=== PATIENT | female | born 1980 | race Caucasian/White ===

== ENCOUNTER 2019-10-23 20:48 | Emergency (ER) | payer BC ==
[~2019-10-23] VITALS: Ht 160 cm; Wt 65.8 kg
[2019-10-23] MEDS ORDERED: ONDA4TAB8 PO (21:13)
[2019-10-23] MEDS ORDERED: PIPERACILLIN SODIUM/TAZOBACTAM 3.375 G in IV DEXTROSE 5% 50 ML IV ONE (22:45)
[2019-10-23] MEDS ORDERED: KETOROLAC TROMETHAMINE 30 MG INJ IVP ONE (23:00)
[2019-10-23] MEDS ORDERED: IV NORMAL SALINE 1000 ML BAG IV ONE (23:00)
[2019-10-23] MEDS ORDERED: METOCLOPRAMIDE HCL 10 MG/2 ML VIAL IV ONE (23:00)
[2019-10-23] MEDS ORDERED: METOCLOPRAMIDE HCL 10 MG/2 ML VIAL ONE (23:04)
[2019-10-23] MEDS ORDERED: KETOROLAC TROMETHAMINE 30 MG INJ ONE (23:04)
--- NOTE | 2019-10-24 00:16 | NUR ---
Patient discharged to home in stable conditon. Written and verbal after care instructions given. Patient verbalizes understanding of instructions. All belongings with patient. PIV removed. Verbal ACI
[2019-10-24 00:17] VITALS: BP 107/71
== END 2019-10-24 00:17 | disposition home or self-care (01) ==
LOC: ER 20:51
DX: J11.1 Influenza due to unidentified influenza virus with other respiratory manifestations (principal); Z79.899 Other long term (current) drug therapy
CPT/HCPCS: 87400; 93005; 96374; 96375; 99284; J1885; J2765; A4663; J7030

== ENCOUNTER 2023-03-17 18:40 | Emergency (ER) | payer BC ==
[~2023-03-17] VITALS: Ht 160 cm; Wt 65.8 kg
[~2023-03-17 18:40] MED LIST: ONDA4TAB8 PO
[2023-03-17 18:45] VITALS: O2SAT 99
[2023-03-17] MEDS ORDERED: KETOROLAC TROMETHAMINE 30 MG INJ IM ONE (19:30)
[2023-03-17] MEDS ORDERED: MAG HYDROX/AL HYDROX/SIMETH 30 ML LIQUID UDC PO ONE (19:30)
[2023-03-17] MEDS ORDERED: KETOROLAC TROMETHAMINE 30 MG INJ ONE (19:33)
[2023-03-17] MEDS ORDERED: MAG HYDROX/AL HYDROX/SIMETH 30 ML LIQUID UDC ONE (19:35)
[2023-03-17 19:38] LABS: HEMATOCRIT 39.3 % (31.2-41.9); MEAN CORPUSCULAR HEMOGLOBIN 30.5 uug (24.7-32.8); MEAN CORPUSCULAR VOLUME 90.5 fL (75.5-95.3); PLATELET COUNT (AUTO) 197 K/uL (179-408)
--- NOTE | 2023-03-17 19:39 | NUR ---
Patient refused medication . notified.
[2023-03-17 19:41] LABS: *BILIRUBIN,URIN NEGATIVE (NEGATIVE); *BLOOD, URINE NEGATIVE (NEGATIVE); *CLARITY,URINE CLEAR (CLEAR); *COLOR,URINE YELLOW (YELLOW); *KETONES,URINE NEGATIVE (NEGATIVE); *UROBILINOGEN,URINE 0.2 E.U./dl (NORMAL); LEUKOCYTE ESTERASE ,URINE NEGATIVE (NEGATIVE); NITRITE, URINE NEGATIVE (NEGATIVE); UGLUCOSE NEGATIVE (NEGATIVE)
[2023-03-17 19:44] LABS: *URINE HCG, QUAL NEGATIVE (NEGATIVE)
--- NOTE | 2023-03-17 19:44 | NUR ---
Urine specimen sent to lab.
[2023-03-17 19:46] LABS: CREATININE 0.6 mg/dL (0.6-1.3); POTASSIUM 4.2 mmol/L (3.5-5.1)
[2023-03-17 19:52] LABS: BILIRUBIN,TOTAL 0.3 mg/dL (0.2-1.0); TOTAL PROTEIN, SERUM 6.7 g/dL (6.4-8.2)
--- NOTE | 2023-03-17 20:47 | NUR ---
DCD instructions givento pt,. who verbalized understanding. Pt. left with no visible distress.
== END 2023-03-17 20:48 | disposition home or self-care (01) ==
LOC: ER 18:40
DX: R10.9 Unspecified abdominal pain (principal); K59.00 Constipation, unspecified; Z79.899 Other long term (current) drug therapy
CPT/HCPCS: 99284; 80053; 81003; 84703; 83690; 85025; 36415; 74018; J1885; A4663

== ENCOUNTER 2024-01-18 12:06 | Emergency (ER) | payer BC ==
[~2024-01-18] VITALS: Ht 160 cm; Wt 65.8 kg
[2024-01-18 13:06] LABS: *BILIRUBIN,URIN NEGATIVE (NEGATIVE); *BLOOD, URINE NEGATIVE (NEGATIVE); *CLARITY,URINE CLEAR (CLEAR); *COLOR,URINE YELLOW (YELLOW); *KETONES,URINE NEGATIVE (NEGATIVE); *PROTEIN,URINE NEGATIVE (NEGATIVE); *UROBILINOGEN,URINE 0.2 E.U./dl (NORMAL); LEUKOCYTE ESTERASE ,URINE TRACE (NEGATIVE); NITRITE, URINE NEGATIVE (NEGATIVE); PH,URINE 6.5 (5.0-8.0); UGLUCOSE NEGATIVE (NEGATIVE)
[2024-01-18 13:34] LABS: BACTERIA,URINE FEW /HPF (NONE SEEN); RBC,URINE 0-3 /HPF (0-3); SQUAMOUS EPITHELIAL CELL,UR FEW /HPF (NONE SEEN)
[2024-01-18] MEDS ORDERED: GUAI5SYR4 PO (13:50)
[2024-01-18] MEDS ORDERED: SULF1TAB48 PO (14:01)
[2024-01-18 14:33] VITALS: BP 108/67; TEMP 98.3; O2SAT 100
== END 2024-01-18 14:34 | disposition home or self-care (01) ==
LOC: ER 12:07
DX: J98.8 Other specified respiratory disorders (principal); N30.90 Cystitis, unspecified without hematuria; F17.200 Nicotine dependence, unspecified, uncomplicated; Z79.899 Other long term (current) drug therapy
CPT/HCPCS: 71045; A4606; A4663